=== PATIENT | female | born 1995 | race African-American/Black ===

== ENCOUNTER 2020-01-14 04:02 | Observation (INO) ==
[2020-01-14] MEDS ORDERED: TERBUTALINE 1 MG/1 ML VIAL SUBCUT PRN (04:24)
[2020-01-14] MEDS ORDERED: MEPERIDINE 50 MG/1 ML VIAL IV PRN (04:24)
[2020-01-14] MEDS ORDERED: ONDANSETRON 4 MG/2 ML VIAL IV PRN (04:24)
[2020-01-14] MEDS ORDERED: TERBUTALINE 1 MG/1 ML VIAL ONE (04:27)
[2020-01-14] MEDS ORDERED: LACTATED RINGERS 1,000 ML IV ONE (04:33)
[2020-01-14] MEDS ORDERED: MAGNESIUM SULF RIDER 100 ML IV ONE (04:35)
[2020-01-14] MEDS ORDERED: AMPICILLIN INJ 2,000 MG in SODIUM CHLORIDE 0.9% 100 ML IV ONE (04:49)
[2020-01-14] MEDS ORDERED: MAGNESIUM SULF DRIP 40 GM/1,000 ML ML IV SCH (05:00)
[2020-01-14 05:01] LABS: Basophils % 0.1 % (0.0-0.8); Hematocrit 31.3 VOL% (35.7-47.0); Immature Granulocytes % 0.6 %; Immature Granulocytes Absolute 0.08 #; Lymphocytes # 1.6 10*3/uL (1.4-4.0); Lymphocytes % 12.1 % (21.3-54.2); Mean Corpuscular HGB Conc 31.9 GM/DL (32-36); Mean Corpuscular Volume 92.1 FL (87-102); Mean Platelet Volume 11.4 FL (9.6-12.0); Monocytes % 4.9 % (1.7-12.7); Neutrophils % 82.3 % (38.7-73.9); Platelet Count 273 T/CUMM (130-400); White Blood Count 13.2 T/CUMM (4-12)
[2020-01-14 05:21] LABS: Albumin 2.7 G/DL (3.4-5.0); Bilirubin,Total 0.5 MG/DL (0.2-1.0); Calcium 9.1 MG/DL (8.5-10.1); Osmolality,Calculated 269.8 MOS/KG (273-304)
[2020-01-14] MEDS ORDERED: PROMETHAZINE 25 MG/1 ML VIAL IM ONE ×2 (05:44→05:55)
[2020-01-14] MEDS ORDERED: MEPERIDINE 25 MG/1 ML VIAL ONE (05:52)
[2020-01-14] MEDS ORDERED: MEPERIDINE 25 MG/1 ML VIAL IV ONE (05:58)
[2020-01-14 06:12] LABS: Apearance,Urine CLEAR (Clear); Bacteria,Urine Occasional /HPF (Few); Bilirubin,Urine Negative (Negative); Blood, Urine Negative (Negative); Glucose,Urine (UA) Negative (Negative); Ketones,Urine Negative (Negative); Mucus,Urine Occasional /LPF (Occasional); Nitrite,Urine Negative (Negative); Protein,Urine Negative; RBC,Urine <1 /HPF (0-4); Squamous Epithelial Cell,Urine Occasional /HPF (0-10); Urine Color Straw (Yellow); Urine Specific Gravity 1.003 (1.001-1.035); Urine Urobilinogen < 2.0 EU/DL (0.2-1.0); WBC,Urine <1 /HPF (0-6)
[2020-01-14 07:45] LABS: Barbiturates Screen,Urine Negative (Negative); Benzodiazepines Screen,Urine Positive (Negative); Cannabinoid Screen,Urine Positive (Negative); Opiate Screen,Urine Negative (Negative); Phencyclidine Screen,Urine Negative (Negative)
== END 2020-01-14 07:55 | disposition hospice, home (50) ==
LOC: N.LDOUT 04:02 → N.LD 04:03 → INTOOBSV 04:24
PROVIDERS: ADMIT Obstetrics & Gynecology; ATTEND Obstetrics & Gynecology